=== PATIENT | male | born 1990 | race African-American/Black ===

== ENCOUNTER 2018-08-11 06:00 | Emergency (ER) | payer MEDICAID ==
[~2018-08-11] VITALS: Ht 180.3 cm; Wt 73.9 kg
--- NOTE | 2018-08-11 06:10 | NUR ---
IV LINE OBTAINED ON R AC 18G.
--- NOTE | 2018-08-11 06:10 | NUR ---
BIBSELF FROM HOME. AAOX4. AMBULATORY. BREATHING EVEN AND UNLABORED. NO SOB. TALKING IN FULL SENTENCES. C/O UPPER LIP SWELLING, FIRST NOTED BY PT AT 0315. PT REPORTS TALKING 1 TABLET BENADRYL AT HOME. PT REPORTS BEING ALLERGIC TO PEANUTS, BERMUDA GRASS, WALNUT, ALMONDS AND CATS. PT STATES THAT DESPITE BEING ALLERGIC TO CAT, HE OWNS 2 KITTENS HIMSELF W/O HAVING ANY REACTION. NO REPORT OF BEING IN CONTACT WITH KNOWN ALLERGEN THAT CAUSE REACTION. TO ER BED 9. MD AT BEDSIDE FOR EVAL. ORDERS RECEIVED.
[2018-08-11] MEDS ORDERED: FAMOTIDINE (20 MG) 20 MG TABLET ONE (06:13)
[2018-08-11] MEDS ORDERED: predniSONE 20 MG TABLET ONE (06:13)
[2018-08-11] MEDS ORDERED: diphenhydrAMINE HCL 50 MG CAPSULE ONE (06:13)
[2018-08-11] MEDS ORDERED: diphenhydrAMINE HCL 50 MG CAPSULE PO ONE (06:30)
[2018-08-11] MEDS ORDERED: predniSONE 10 MG TABLET PO ONE (06:30)
[2018-08-11] MEDS ORDERED: FAMOTIDINE (20 MG) 20 MG TABLET PO ONE (06:30)
[2018-08-11] MEDS ORDERED: EPINEPHRINE (1:1000) 1 MG/ML AMPUL ONE (07:16)
[2018-08-11] MEDS ORDERED: EPINEPHRINE (1:1000) MDV 30 MG/30ML VIAL SUBCUT ONE (07:30)
--- NOTE | 2018-08-11 07:37 | NUR ---
REPORT GIVEN TO YAEL RINCON FOR BAKARI.
--- NOTE | 2018-08-11 07:38 | NUR ---
REPORT RECEIVED FROM CAN CONLEY FOR BAKARI
--- NOTE | 2018-08-11 08:20 | NUR ---
IV removed. Catheter intact and site benign. Pressure and 4x4 applied to site. No bleeding noted.Patient discharged to home in stable condition. Written and verbal after care instructions given. Patient verbalizes understanding of instruction.
[2018-08-11 08:44] VITALS: BP 132/74
== END 2018-08-11 08:25 | disposition home or self-care (01) ==
LOC: ER 06:03
DX: T78.40XA Allergy, unspecified, initial encounter (principal); X58.XXXA Exposure to other specified factors, initial encounter
CPT/HCPCS: 96372; 99284; J0171 ×2; J7512; Q0163